=== PATIENT | female | born 1995 | race African-American/Black ===

== ENCOUNTER 2019-08-09 19:28 | Emergency (ER) | payer OTHER ==
[~2019-08-09] VITALS: Ht 160 cm; Wt 112.3 kg
[2019-08-09] MEDS ORDERED: KETOROLAC 30MG/ML VIAL IM STA (20:01)
[2019-08-09 20:49] LABS: CLARITY URINE CLOUDY (CLEAR); COLOR URINE YELLOW (YELLOW); KETONES URINE TRACE (NEGATIVE); LEUKOCYTE ESTERASE URINE 1+ (NEGATIVE); NITRITE URINE NEGATIVE (NEGATIVE); OCCULT BLOOD URINE NEGATIVE (NEGATIVE); PH URINE 5.5 (4.5-8.0); PROTEIN URINE NEGATIVE (NEGATIVE); SPECIFIC GRAVITY URINE 1.031 (1.005-1.030)
[2019-08-09 21:22] VITALS: BP 135/89
== END 2019-08-09 23:00 | disposition home or self-care (01) ==
LOC: ER 22:50
DX: M62.830 Muscle spasm of back (principal)
CPT/HCPCS: 81003; 81025; 96372; 99283; J1885